=== PATIENT | female | born 1990 ===

== ENCOUNTER 2021-06-25 17:32 | Emergency (ER) | payer MEDICAID, OTHER ==
[~2021-06-25] VITALS: Ht 157.5 cm; Wt 87.3 kg
[2021-06-25 17:59] VITALS: BP 131/73
[2021-06-25 19:32] LABS: INFLUENZA TYPE A NEGATIVE FOR TYPE A (NEGATIVE); INFLUENZA TYPE B NEGATIVE FOR TYPE B (NEGATIVE)
== END 2021-06-25 20:03 | disposition home or self-care (01) ==
LOC: EMS 17:33
DX: U07.1 COVID-19 (principal); F17.210 Nicotine dependence, cigarettes, uncomplicated
CPT/HCPCS: 87804; 99283; U0003